=== PATIENT | male | born 2000 | race Caucasian/White ===

== ENCOUNTER 2023-01-08 20:12 | Emergency (ER) | payer BC ==
[2023-01-08] MEDS ORDERED: Acetaminophen 500 MG TAB ONE (21:03)
[2023-01-08] MEDS ORDERED: Ibuprofen 200 MG TAB ONE (21:04)
== END 2023-01-08 22:00 | disposition home or self-care (01) ==
LOC: CSHERS 20:12
DX: S93.401A Sprain of unspecified ligament of right ankle, initial encounter (principal); X50.1XXA Overexertion from prolonged static or awkward postures, initial encounter